=== PATIENT | female | born 1975 | race Hispanic/Latino ===

== ENCOUNTER 2018-09-06 09:35 | Emergency (ER) | payer OTHER | END 2018-09-06 10:36 | disposition home or self-care (01) | LOC: EDH 09:35 | DX: L02.415 Cutaneous abscess of right lower limb (principal) | CPT/HCPCS: 10060; 96372 ==

== ENCOUNTER 2019-07-05 15:27 | Emergency (ER) | payer BC ==
[2019-07-05] MEDS ORDERED: IBUPROFEN 600 MG TABLET ONE (16:50)
== END 2019-07-05 18:42 | disposition home or self-care (01) ==
LOC: EDH 15:27
DX: S46.812A Strain of other muscles, fascia and tendons at shoulder and upper arm level, left arm, initial encounter (principal); S20.212A Contusion of left front wall of thorax, initial encounter; X50.0XXA Overexertion from strenuous movement or load, initial encounter; Y93.89 Activity, other specified; Y92.89 Other specified places as the place of occurrence of the external cause; Y99.8 Other external cause status
CPT/HCPCS: 93005